=== PATIENT | male | born 1955 | race Caucasian/White ===

== ENCOUNTER 2018-12-24 15:26 | Emergency (ER) | payer MEDICAID, OTHER ==
[2018-12-24 15:30] VITALS: TEMP 98.6; O2SAT 98
--- NOTE | 2018-12-24 16:27 | C.PDOC ---
History Of Present Illness 63 y/o male presents to the ED with 3 weeks of constant posterior headache associated with neck pain. No known hx of trauma, fever, neck stiffness or leg swelling. Patient tried taking some Advil with minimal relief. Today patient co mplains of palpitations but no chest pain. He went to his doctor, who he has not seen for 1-2 years. The nurses checked his vitals in the office and sent pt to ED without seeing physician. Patient sts [place] [facility] [place] and given anti-hypertensive to go home with and pt never returned to PMD for refill and has not taken blood pressure medication since. . Pt denies any chest pain or SOB. States he gets blurry vision every now and then., but none at present. no fever or chills. no neck stiffness. Time Seen by Provider: 12/24/18 15:41 Chief Complaint (Nursing): High Blood Pressure History Per: Voice And Data Technician (#[id number]) History/Exam Limitations: no limitations Onset/Duration Of Symptoms: Days Current Symptoms Are (Timing): Still Present Associated Symptoms: Blurred Vision Past Medical History Reviewed: Historical Data, Nursing Documentation, Vital Signs Vital Signs: Last Vital Signs Temp 98.6 F 12/24/18 15:30 Pulse 68 12/24/18 15:30 Resp 16 12/24/18 15:30 BP 201/125 H 12/24/18 15:30 Pulse Ox 98 12/24/18 15:30 Primary Care Provider: Vicky Victor - Medical History PMH: HTN - [facility] Procedures COLONOSCOPY (02/15/15) Family History: States: No Known Family Hx - Social History Hx Alcohol Use: Yes Hx Substance Use: No Review Of Systems Constitutional: Negative for: Fever Eyes: Positive for: Vision Change (occasionally blurred) Cardiovascular: Positive for: Palpitations. Negative for: Chest Pain, Light Headedness Respiratory: Negative for: Cough, Shortness of Breath Gastrointestinal: Negative for: Nausea, Vomiting Musculoskeletal: Positive for: Neck Pain. Negative for: Leg Pain (or swelling) Neurological: Positive for: Headache. Negative for: Weakness, Numbness, Change in Speech Physical Exam - Physical Exam Appears: Non-toxic, No Acute Distress Skin: Warm, No Rash Head: Atraumatic, Normacephalic Eye(s): bilateral: PERRL, EOMI, Other (No nystagmus) Ear(s): Bilateral: Normal Neck: Normal ROM, Supple, Other (no meningeal signs) Chest: Symmetrical Cardiovascular: Rhythm Regular, No Murmur Respiratory: No Decreased Breath Sounds, No Rales, No Rhonchi, No Wheezing, Other (Lungs CTA bilaterally) Gastrointestinal/Abdominal: Bowel Sounds, Soft, No Tenderness, No Distention Extremity: Normal ROM, No Pedal Edema, No Calf Tenderness Pulses: Left Dorsalis Pedis: Normal, Right Dorsalis Pedis: Normal Neurological/Psych: Oriented x3, Normal Speech, Normal Cognition, Normal Cranial Nerves, No Cerebellar Signs, Normal Motor, Normal Sensation Gait: Steady ED Course And Treatment - Laboratory Results Result Diagrams: 12/24/18 16:27 12/24/18 16:27 ECG: Interpreted By Mo ECG Rhythm: Sinus Rhythm Interpretation Of ECG: Left ventricular hypertrophy Rate From EC O2 Sat by Pulse Oximetry: 98 (RA) Pulse Ox Interpretation: Normal - CT Scan/US Head CT Other Rad Studies (CT/US): Read By Radiologist, Radiology Report Reviewed CT/US Interpretation: No acute intracranial pathology identified. Medical Decision Making Medical Decision Making: Initial Plan: Blood work w/ troponin ordered. EKG and Head CT ordered and reviewed. Trop negative. CT head is negative. 1830 pt advised ekg finding of lvh that relates to chronic elevated blood pressure and also need to decrease bp; explained to patient need to decrease bp slowly. pt reports headache much better at this time; pt is smiling, lauging and in no acute distress . will d/c with 2 week supply of norvasc and pt advised to f/u Dr Ines murray. Disposition Counseled Patient/Family Regarding: Studies Performed, Diagnosis, Need For Followup, Rx Given - Disposition Referrals: Argelia Marin [Staff Provider] - Disposition: HOME/ ROUTINE Disposition Time: 19:00 Condition: IMPROVED Additional Instructions: Follow up with Dr Chacon tomorrow if possible. Take amlodipine as directed. Tylenol for headache if needed. Return to ER for any worse symptoms, Prescriptions: Acetaminophen [Tylenol 325mg tab] 650 mg PO Q6 #30 tab amLODIPine [Norvasc] 10 mg PO DAILY #15 tab Instructions: High Blood Pressure (DC) Forms: [employer] (Uzbek), General Discharge Instructions - Clinical Impression Clinical Impression: Hypertension, Headache - PA / MERCHANDISE BUYER / Resident Statement MD/DO has reviewed & agrees with the documentation as recorded. - Scribe Statement The provider has reviewed the documentation as recorded by the Scribe Frances Bosch All medical record entries made by the Nghiaibe were at my direction and personally dictated by me. I have reviewed the chart and agree that the record accurately reflects my personal performance of the history, physical exam, medical decision making, and the department course for this patient. I have also personally directed, reviewed, and agree with the discharge instructions and d isposition.
[2018-12-24 16:31] LABS: BASO # 0.1 K/uL (0.0-0.2); BASO % 1.2 % (0.0-2.0); EOS # 0.2 K/uL (0.0-0.7); EOS % 2.2 % (0.0-4.0); HEMOGLOBIN 15.2 g/dL (12.0-18.0); LYMPH # 1.6 K/uL (1.0-4.3); MEAN CELL VOLUME 97.6 fL (80.0-94.0); MEAN CORPUSCULAR HEMOGLOBIN 32.6 pg (27.0-31.0); MEAN CORPUSCULAR HGB CONC 33.4 g/dL (33.0-37.0); MEAN PLATELET VOLUME 9.8 fL (7.2-11.7); MONO # 0.7 K/uL (0.0-0.8); MONO % 8.8 % (0.0-10.0); NEUT # 5.2 K/uL (1.8-7.0); NEUT % 66.8 % (50.0-75.0); RBC 4.66 Mil/uL (4.40-5.90); RED CELL DISTRIBUTION WIDTH 13.1 % (11.5-14.5); WHITE BLOOD COUNT 7.8 K/uL (4.8-10.8)
[2018-12-24 16:34] LABS: URINE BILIRUBIN NEGATIVE (NEGATIVE); URINE BLOOD NEGATIVE (NEGATIVE); URINE CLARITY Clear (Clear); URINE COLOR Yellow (YELLOW); URINE GLUCOSE (UA) NORMAL (Normal); URINE LEUKOCYTE ESTERASE NEG Leu/uL (Negative); URINE PROTEIN NEGATIVE (NEGATIVE); URINE UROBILINOGEN NORMAL mg/dL (0.2-1.0)
--- NOTE | 2018-12-24 16:51 | CT ---
Date of service: 12/24/2018 PROCEDURE: CT HEAD WITHOUT CONTRAST. HISTORY: AMS COMPARISON: None available. TECHNIQUE: Axial computed tomography images were obtained through the head/brain without intravenous contrast. Radiation dose: Total exam DLP = 1172.73 mGy-cm. This CT exam was performed using one or more of the following dose reduction techniques: Automated exposure control, adjustment of the mA and/or kV according to patient size, and/or use of iterative reconstruction technique. FINDINGS: HEMORRHAGE: No intracranial hemorrhage. BRAIN: No mass effect or edema. Intracranial atherosclerotic calcifications. The mcknight white matter differentiation appears intact. Please note that MRI with diffusion imaging is more sensitive in the detection of acute ischemic event. VENTRICLES: No hydrocephalus. CALVARIUM: Unremarkable. PARANASAL SINUSES: Unremarkable as visualized. No significant inflammatory changes. MASTOID AIR CELLS: Unremarkable as visualized. No inflammatory changes. OTHER FINDINGS: None. IMPRESSION: No acute intracranial pathology identified.
[2018-12-24 17:04] LABS: ALB/GLOB RATIO 1.9 (1.0-2.1); ALBUMIN 5.1 g/dL (3.5-5.0); ALT/SGPT 41 U/L (21-72); AST/SGOT 53 U/L (17-59); BLOOD UREA NITROGEN 15 mg/dL (9-20); CALCIUM 9.5 mg/dl (8.6-10.4); GFR NON-AFRICAN AMERICAN > 60
[2018-12-24 18:33] VITALS: BP 190/110; PULSE 60; RESP 19
--- NOTE | 2018-12-25 11:27 | CARD ---
APPROVED REPORT Date of service: 12/24/2018 EKG Measurement Heart [id number] <Conclusion> Normal sinus rhythm Voltage criteria for left ventricular hypertrophy Abnormal ECG
== END 2018-12-24 19:47 | disposition home or self-care (01) ==
LOC: C.ER 15:26
DX: R51 Headache (principal); I10 Essential (primary) hypertension